=== PATIENT | female | born 1965 | race Caucasian/White ===

== ENCOUNTER 2017-12-20 14:53 | Outpatient (CLI) | payer OTHER | END 2017-12-20 14:54 | disposition home or self-care (01) | LOC: BICMAMMO 14:53 | PROVIDERS: ATTEND Obstetrics & Gynecology | DX: Z12.31 Encounter for screening mammogram for malignant neoplasm of breast (principal); R92.1 Mammographic calcification found on diagnostic imaging of breast; Z80.3 Family history of malignant neoplasm of breast | CPT/HCPCS: 77063; 77067 ==

== ENCOUNTER 2017-12-25 12:13 | Outpatient (CLI) | payer OTHER | END 2017-12-25 12:14 | disposition home or self-care (01) | LOC: BICMAMMO 12:13 | PROVIDERS: ATTEND Obstetrics & Gynecology | DX: R92.1 Mammographic calcification found on diagnostic imaging of breast (principal); Z80.3 Family history of malignant neoplasm of breast | CPT/HCPCS: G0279 ==

== ENCOUNTER 2018-06-27 13:33 | Outpatient (CLI) | payer OTHER | END 2018-06-27 13:34 | disposition home or self-care (01) | LOC: BICMAMMO 13:33 | PROVIDERS: ATTEND Obstetrics & Gynecology | DX: R92.8 Other abnormal and inconclusive findings on diagnostic imaging of breast (principal); R92.1 Mammographic calcification found on diagnostic imaging of breast; Z80.3 Family history of malignant neoplasm of breast | CPT/HCPCS: G0279 ==

== ENCOUNTER 2019-01-02 14:38 | Outpatient (CLI) | payer OTHER ==
--- NOTE | 2019-01-02 15:11 | MMO ---
Bilateral MAMMO Bilat Diag [facility]. CLINICAL HISTORY: Patient is 53 years old and is seen for diagnostic exam. The patient has the following family history of breast cancer: maternal aunt. The patient has no personal history of cancer. VIEWS: The views performed were: bilateral craniocaudal with tomosynthesis; bilateral mediolateral oblique with tomosynthesis; bilateral mediolateral with tomosynthesis; and right exaggerated craniocaudal. FILMS COMPARED: The present examination has been compared to prior imaging studies performed at [facility] on 12/20/2017, 12/25/2017 and 06/27/2018. MAMMOGRAM FINDINGS: The breasts are heterogeneously dense, which could obscure a lesion on mammography. Left breast: There are no suspicious masses, calcifications or areas of architectural distortion. There are benign appearing calcifications in the left breast. Right breast: Stable calcifications deep in the slightly upper breast. There are no suspicious masses, suspicious calcifications, or new areas of architectural distortion. IMPRESSION: THERE IS NO MAMMOGRAPHIC EVIDENCE OF MALIGNANCY. A ROUTINE FOLLOW-UP MAMMOGRAM IN 1 YEAR IS RECOMMENDED. THE RESULTS OF THIS EXAM WERE SENT TO THE PATIENT. ACR BI-RADS Category 2 - Benign finding MAMMOGRAPHY NOTE: 1. A negative mammogram report should not delay a biopsy if a dominant of clinically suspicious mass is present. 2. Approximately 10% to 15% of breast cancers are not detected by mammography. 3. Adenosis and dense breasts may obscure an underlying neoplasm. Reported by: LEANN BRAND MD Electonically Signed: [id number]
== END 2019-01-02 14:39 | disposition home or self-care (01) ==
LOC: BICMAMMO 14:38
PROVIDERS: ATTEND Obstetrics & Gynecology
DX: R92.8 Other abnormal and inconclusive findings on diagnostic imaging of breast (principal); Z80.3 Family history of malignant neoplasm of breast
CPT/HCPCS: 77066; G0279

== ENCOUNTER 2021-02-07 14:10 | Outpatient (CLI) | payer OTHER | END 2021-02-07 14:11 | disposition home or self-care (01) | LOC: BICMAMMO 14:10 | PROVIDERS: ATTEND Obstetrics & Gynecology | DX: Z12.31 Encounter for screening mammogram for malignant neoplasm of breast (principal); Z80.3 Family history of malignant neoplasm of breast | CPT/HCPCS: 77063; 77067 ==

== ENCOUNTER 2021-07-22 13:41 | Outpatient (CLI) | payer BC | END 2021-07-22 13:42 | disposition home or self-care (01) | LOC: MRI 13:41 | PROVIDERS: ATTEND Neurological Surgery | DX: M47.22 Other spondylosis with radiculopathy, cervical region (principal); M47.26 Other spondylosis with radiculopathy, lumbar region; M48.061 Spinal stenosis, lumbar region without neurogenic claudication | CPT/HCPCS: 72141; 72148 ==

== ENCOUNTER 2021-11-13 10:59 | Emergency (ER) | payer BC ==
[2021-11-13] MEDS ORDERED: Bacitracin 1 PK ONE ×2 (13:19→13:23)
== END 2021-11-13 13:40 | disposition home or self-care (01) ==
LOC: ERS 10:59
DX: T22.212A Burn of second degree of left forearm, initial encounter (principal); X10.2XXA Contact with fats and cooking oils, initial encounter; K21.9 Gastro-esophageal reflux disease without esophagitis
CPT/HCPCS: 16020

== ENCOUNTER 2022-03-18 08:39 | Emergency (ER) | payer BC ==
[2022-03-18] MEDS ORDERED: Ibuprofen 200 MG TAB ONE (09:34)
== END 2022-03-18 10:05 | disposition home or self-care (01) ==
LOC: ERS 08:39
DX: S83.92XA Sprain of unspecified site of left knee, initial encounter (principal); W23.1XXA Caught, crushed, jammed, or pinched between stationary objects, initial encounter

== ENCOUNTER 2022-03-20 14:28 | Outpatient (CLI) | payer BC | END 2022-03-20 14:29 | disposition home or self-care (01) | LOC: SCSMRI 14:28 | PROVIDERS: ATTEND Orthopaedic Surgery | DX: M23.92 Unspecified internal derangement of left knee (principal); S83.512A Sprain of anterior cruciate ligament of left knee, initial encounter; S80.02XA Contusion of left knee, initial encounter ==

== ENCOUNTER 2022-05-03 07:59 | Observation (INO) | payer BC ==
[2022-05-01 15:24] VITALS: BMI 24.5
[2022-05-03] MEDS ORDERED: Ropivacaine 0.5% HCl/PF (150 MG/30 ML VIAL) ONE (08:31)
[2022-05-03] MEDS ORDERED: FENTANYL 50 MCG/ML 1 ML VIAL ONE ×2 (08:31→12:24)
[2022-05-03] MEDS ORDERED: Midazolam HCl 2 mg/2 ml Vial ONE (08:31)
[2022-05-03 08:48] LABS: SARS-CoV-2 NAA Rapid Test Not Detected (NotDetected)
[2022-05-03] MEDS ORDERED: Promethazine HCl 25 MG/ML VIAL IM PRN (09:45)
[2022-05-03] MEDS ORDERED: Zolpidem Tartrate 5 MG TAB PO PRN (09:45)
[2022-05-03] MEDS ORDERED: HYDROcodone/Acetaminophen 5/325 mg Tablet PO PRN ×2 (09:45)
[2022-05-03] MEDS ORDERED: Ondansetron PF 4 MG/2 ML Vial IVP PRN (09:45)
[2022-05-03] MEDS ORDERED: traMADol HCl 50 MG TAB PO PRN ×2 (09:45)
[2022-05-03] MEDS ORDERED: Ropivacaine 0.2% 550 ML 550 ML NERVE BLCK SCH (09:45)
[2022-05-03] MEDS ORDERED: Ketorolac Tromethamine 30 MG/ML VIAL IVP PRN (09:45)
[2022-05-03] MEDS ORDERED: Vancomycin 1 GM/200 ML (PREMIX) BAG ONE (09:46)
[2022-05-03] MEDS ORDERED: Sodium Chloride 0.9% 100 ML ONE (10:25)
[2022-05-03] MEDS ORDERED: CEFAZOLIN 2 GM VIAL ONE (10:25)
[2022-05-03] MEDS ORDERED: Dexamethasone 20 MG/5 ML VIAL ONE (10:29)
[2022-05-03] MEDS ORDERED: Ondansetron PF 4 MG/2 ML Vial ONE (10:29)
[2022-05-03] MEDS ORDERED: PROPOFOL 200 MG/20 ML VIAL ONE (10:29)
[2022-05-03] MEDS ORDERED: Ketorolac Tromethamine 30 MG/ML VIAL ONE (10:29)
[2022-05-03] MEDS ORDERED: fentaNYL PF 100 MCG/2 ML SYRINGE ONE (11:04)
[2022-05-03] MEDS ORDERED: Methocarbamol 500 MG TAB PO PRN (11:55)
[2022-05-03] MEDS ORDERED: Acetaminophen 500 MG TAB PO PRN (11:55)
[2022-05-03] MEDS ORDERED: HYDROcodone/Acetaminophen 7.5/325 mg Tablet PO PRN ×2 (11:55)
[2022-05-03] MEDS ORDERED: Bisacodyl 10 MG SUPP PR PRN (11:55)
[2022-05-03] MEDS ORDERED: diphenhydrAMINE 50 MG CAP PO PRN (11:55)
[2022-05-03] MEDS ORDERED: Milk Of Magnesia 30 ML UDCUP PO PRN (11:55)
[2022-05-03] MEDS ORDERED: Meperidine HCl/PF 25 MG/ML VIAL ONE (12:40)
[2022-05-03] MEDS: Dextrose 5 %-0.45 % NaCl 1,000 ML IV SCH ×2 (17:26→22:47)
[2022-05-03] MEDS: CEFAZOLIN 2 GM in Sodium Chloride 0.9% 100 ML IVPB SCH (18:03)
[2022-05-03] MEDS: Famotidine 20 MG TAB PO SCH (22:25)
[2022-05-03] MEDS: Vancomycin 1 GM in Premix Bag 1 BAG IVPB SCH (22:25)
[2022-05-04] MEDS: CEFAZOLIN 2 GM in Sodium Chloride 0.9% 100 ML IVPB SCH (02:42)
[2022-05-04] MEDS: Dextrose 5 %-0.45 % NaCl 1,000 ML IV SCH (08:11)
[2022-05-04] MEDS ORDERED: FLU VACC QS2022-23(6MOS UP)/PF 60 MCG/0.5 ML SYRINGE IM ONE (09:00)
[2022-05-04] MEDS: Famotidine 20 MG TAB PO SCH (10:15)
[2022-05-04] MEDS: Vancomycin 1 GM in Premix Bag 1 BAG IVPB SCH (10:15)
[2022-05-04 11:23] VITALS: BP 112/70; TEMP 98.7
== END 2022-05-04 12:20 | disposition home or self-care (01) ==
LOC: SDC 07:59 → SURG A 11:55
PROVIDERS: ADMIT Orthopaedic Surgery; ATTEND Orthopaedic Surgery
PROC: 0MRP47Z Replacement of Left Knee Bursa and Ligament with Autologous Tissue Substitute, Percutaneous Endoscopic Approach (ICD-10-PCS; principal; 2022-05-03)
DX: S83.512A Sprain of anterior cruciate ligament of left knee, initial encounter (principal); M22.42 Chondromalacia patellae, left knee; G47.30 Sleep apnea, unspecified; E55.9 Vitamin D deficiency, unspecified; Z86.16 Personal history of COVID-19; Z79.899 Other long term (current) drug therapy; Z88.1 Allergy status to other antibiotic agents; Z20.822 Contact with and (suspected) exposure to COVID-19; X58.XXXA Exposure to other specified factors, initial encounter
CPT/HCPCS: A4306; C1713; C1776; C1898; J1100; J1885; J2175; J2250; J2405; J2704; J2795; J3010; J3370; J3490; U0002

== ENCOUNTER 2023-07-19 11:41 | Outpatient (CLI) | payer BC | END 2023-07-19 11:42 | disposition home or self-care (01) | LOC: BICMAMMO 11:41 | PROVIDERS: ATTEND Obstetrics & Gynecology | DX: Z12.31 Encounter for screening mammogram for malignant neoplasm of breast (principal); Z80.3 Family history of malignant neoplasm of breast | CPT/HCPCS: 77063; 77067 ==